=== PATIENT | female | born 2000 | race Caucasian/White ===

== ENCOUNTER 2021-07-13 10:20 | Day surgery (SDC) | payer OTHER ==
[~2021-07-13] VITALS: Ht 160 cm; Wt 53.8 kg
[~2021-07-13 10:20] MED LIST: SODIUM CHLORIDE 0.9% 1,000 ML IV ONE
[2021-07-13] MEDS ORDERED: PROPOFOL 1% 20 ML VIAL IVP ONE (12:00)
== END 2021-07-13 13:35 | disposition home or self-care (01) ==
LOC: SURGERY 10:20
PROVIDERS: ATTEND Student in an Organized Health Care Education/Training Program
DX: K64.8 Other hemorrhoids (principal); K64.4 Residual hemorrhoidal skin tags; K59.00 Constipation, unspecified; Z98.890 Other specified postprocedural states; Z79.899 Other long term (current) drug therapy
CPT/HCPCS: 36415; 45378; 84702; J2704